=== PATIENT | female | born 1935 | race Caucasian/White ===

== ENCOUNTER 2020-01-01 10:28 | Emergency (ER) | payer OTHER ==
--- NOTE | 2020-01-01 10:40 | PDOC ---
History of Present Illness - General Stated Complaint: EPISTAXIS Time Seen by Provider: 01/01/20 10:40 History Source: Patient Exam Limitations: No Limitations - History of Present Illness Initial Comments: 01/01/20 11:29 84yF w PMHx GERD and frequent epistaxis presenting w sudden onset R nare epistaxis starting at 10a. Not stopped w direct pressure and afrin for past hr. Has been having frequent epistasis for past 4mo, followed by Dr Larkin ENT, negative workup. Denies aspirin, clopidogril, anticoagulation use. Denies fever , trouble breathing, vomiting. Past History - Past Medical History Allergies/Adverse Reactions: Allergies Allergy/AdvReac Type Severity Reaction Status Date / Time No Known Allergies Allergy Verified 01/01/20 11:33 Review of Systems - Review of Systems Constitutional: No: Chills, Fever HEENTM: Yes: Nose Bleeding. No: Eye Pain Respiratory: No: Cough, Shortness of Breath Cardiac (ROS): No: Chest Pain, Palpitations ABD/GI: No: Abdominal Distended, Constipated, Diarrhea, Nausea, Vomiting : No: Burning, Dysuria Musculoskeletal: No: Back Pain, Joint Pain Integumentary: No: Bruising, Flushing Neurological: No: Headache, Numbness Psychiatric: No: Anxiety, Depression Endocrine: No: Intolerance to Cold, Intolerance to Heat Hematologic/Lymphatic: Yes: Blood Clots. No: Anemia *Physical Exam - Physical Exam General Appearance: Yes: Nourished, Appropriately Dressed, Mild Distress HEENT: positive: EOMI, GREGG, Normal Voice, Nasal Congestion (bleeding R nare), Hearing Grossly Normal. negative: Scleral Icterus (R), Scleral Icterus (L) Respiratory/Chest: positive: Lungs Clear, Normal Breath Sounds. negative: Chest Tender, Respiratory Distress Cardiovascular: positive: Regular Rhythm, Regular Rate, S1, S2. negative: Edema , Murmur Gastrointestinal/Abdominal: positive: Normal Bowel Sounds, Flat, Soft. negative : Tender, Organomegaly Extremity: positive: Normal Capillary Refill Integumentary: positive: Normal Color. negative: Dry Neurologic: positive: rn telephonic II-XII NML intact, Fully Oriented, Alert, Normal Response, Responsive. negative: Sensory Deficit, Confused, Disoriented ED Treatment Course - LABORATORY CBC & Chemistry Diagram: 01/01/20 11:50 01/01/20 11:50 Medical Decision Making - Medical Decision Making 01/01/20 12:12 EKG - NSR, L axis deviation, HR 85, QTc 445, no ST changes --- 84yF w PMHx GERD and frequent epistaxis presenting w sudden onset R nare epistaxis starting at 10a. Inserted 2x7.5cm rhino rockets (R nare w TXA), slowed bleeding but did not stop. Not anemic Contacted Dr Larkin ENT - advised insert rhino rocket into opposite nare for additional pressure, transfer to ENT center if bleeding doesnt stop. Pt needs outpatient cauterization Transferred to [facility] for intractable epistaxis requiring further ENT care, accepted by Dr Guillen / Eliz - advised remove opposite rhino rocket - removed Discharge - Discharge Information Problems reviewed: Yes Clinical Impression/Diagnosis: Epistaxis Condition: Stable Disposition: TRANSFER ACUTE CARE/OTHER HOSP - Follow up/Referral Referrals: Felicia Valenzuela MD [Primary Care Provider] - - Patient Discharge Instructions - Post Discharge Activity - Transfer to Acute Care Facility Receiving Facility Name: [facility] Accepting Physician:: Dr Bryant
[2020-01-01] MEDS ORDERED: TRANEXAMIC ACID 1000 MG/10 ML VIAL IVPUSH ONE (11:01)
[2020-01-01 11:33] VITALS: TEMP 98.1; BMI 26.6
[2020-01-01 12:14] LABS: BASO % 1.2 % (0-2.0); EOS % 1.1 % (0-4.5); HEMATOCRIT 35.5 % (32.4-45.2); HEMOGLOBIN 12.1 GM/dL (10.7-15.3); LYMPH % 23.1 % (8-40); MCH 31.7 pg (25.7-33.7); MEAN CELL VOLUME 93.1 fl (80-96); MONO % 10.4 % (3.8-10.2); NEUT % 64.2 % (42.8-82.8); PLATELET COUNT 258 K/MM3 (134-434); RBC 3.81 M/mm3 (3.60-5.2); RDW 13.7 % (11.6-15.6)
[2020-01-01 12:26] LABS: INR 1.07 (0.83-1.09); PROTHROMBIN TIME (PATIENT) 12.6 SEC (9.7-13.0)
--- NOTE | 2020-01-01 12:40 | PDOC ---
Attending Attestation - Resident Resident Name: Remi Klein - ED Attending Attestation I have performed the following: I have examined & evaluated the patient, The case was reviewed & discussed with the resident, I agree w/resident's findings & plan, Exceptions are as noted - HPI HPI: 84 yo F history GERD, prior epistaxis presents with abrupt onset epistaxis from R nare since 10am. She attempted to apply direct pressure and instill afrin, did not help. Denies lightheadedness. She has seen Dr. Larkin in the past for similar complaint. Not on oral anticoagulation. - Physicial Exam PE: GENERAL: Awake, alert, and fully oriented, in no acute distress HEAD: No signs of trauma EYES: PERRLA, EOMI, sclera anicteric, conjunctiva clear ENT: Auricles normal inspection, hearing grossly normal, oropharynx clear without exudates. Moist mucosa. +Active bleeding from R nare, with large clot in place NECK: Normal ROM, supple, no lymphadenopathy, JVD, or masses LUNGS: Breath sounds equal, clear to auscultation bilaterally. No wheezes, and no crackles HEART: Regular rate and rhythm, normal S1 and S2, no murmurs, rubs or gallops ABDOMEN: Soft, nontender, normoactive bowel sounds. No guarding, no rebound. No masses EXTREMITIES: Normal range of motion, no edema. No clubbing or cyanosis. No cords, erythema, or tenderness NEUROLOGICAL: Cranial nerves II through XII grossly intact. Normal speech. Motor and sensation intact SKIN: Warm, dry, normal turgor, no rashes or lesions noted. - Medical Decision Making Nasal packing imbued with TXA placed to R nare, initially 5.5 cm, but continued to bleed. Exchanged for 7.5cm pack, but bleeding still continued. As per ENT recommendations, packing was placed to the opposite side to help with hemostasis , but she has still continued to bleed. Case d/w Dr. Larkin, recommended transfer out.
[2020-01-01 12:43] LABS: ALBUMIN 3.3 g/dl (3.4-5.0); BILIRUBIN,TOTAL 0.6 mg/dL (0.2-1); CALCIUM 8.7 mg/dL (8.5-10.1); CREATININE 0.7 mg/dL (0.55-1.3); POTASSIUM 5.5 mmol/L (3.5-5.1); TOT PROT 6.3 g/dl (6.4-8.2)
[2020-01-01 14:40] VITALS: BP 149/59; PULSE 81
--- NOTE | 2020-01-01 16:19 | EKG ---
Test Reason : Blood Pressure : / mmHG Vent. Rate : 088 BPM Atrial Rate : 088 BPM P-R Int : 178 ms QRS Dur : 112 ms QT Int : 374 ms P-R-T Axes : 009 -49 100 degrees QTc Int : 452 ms SINUS RHYTHM WITH FREQUENT PREMATURE VENTRICULAR COMPLEXES LEFT ATRIAL ENLARGEMENT LEFT ANTERIOR FASCICULAR BLOCK LEFT VENTRICULAR HYPERTROPHY WITH REPOLARIZATION ABNORMALITY ABNORMAL ECG Confirmed by MD WATSON MOYSES ([id number]) on 01/01/2020 4:19:08 PM Referred By: Confirmed By:ALVARADO WATSON MD
== END 2020-01-01 14:45 | disposition short-term general hospital (02) ==
LOC: JER 10:28
PROC: 093K7ZZ Control Bleeding in Nasal Mucosa and Soft Tissue, Via Natural or Artificial Opening (ICD-10-PCS; principal; 2020-01-01)
DX: R04.0 Epistaxis (principal); K21.9 Gastro-esophageal reflux disease without esophagitis
CPT/HCPCS: 30901-25; 36415; 80053; 85025; 85610; 93005; 93010; 99284-25